=== PATIENT | female | born 1985 | race Caucasian/White ===

== ENCOUNTER → 2018-10-18 | Outpatient (CLI) | payer BC, OTHER ==
[~2018-10-18] MED LIST: PRILOSEC 20 MG20 MG PO
== END ==
LOC: ULTRA 09:21
DX: R10.10 Upper abdominal pain, unspecified (principal)

== ENCOUNTER → 2019-05-10 | Outpatient (CLI) | payer BC, OTHER | LOC: ULTRA 03:27 | DX: N63.21 Unspecified lump in the left breast, upper outer quadrant (principal); R92.2 Inconclusive mammogram ==

== ENCOUNTER → 2019-05-26 | Outpatient (CLI) | payer BC, OTHER ==
--- NOTE | 2019-05-27 16:11 | PATH ---
[facility] [address] [place] [address] PATHOLOGY RPT PROCEDURE Name: MARK ORDOÑEZ Room #: [facility] [id number] ������������������ Admission: 05/26/19 ������������������ Date of : 81 Discharge: Report #: [id number] Path Case #: [id number] [facility] Accession Number: [id number] . 01 Material submitted: . breast - LEFT BREAST 1200 2CMFN. Modifiers: left . 01 Clinical history: . Left breast mass. . 02 Diagnosis: Breast, 12:00, 2 cm from nipple, needle core biopsy: - Fibroadenoma with myxoid changes. - Negative for atypia or malignancy. 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 02 Comment: Dr. Milton Singh has seen area representative slides of this case (level 2 slides) and concurs with my diagnosis. 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 02 Electronically signed: . Debi Bustamante MD, Pathologist NPI- [id number] . 01 Gross description: . Received in formalin labeled "Mark Ordoñez, left breast 12:00, 2 cm from nipple" is a 3.5 x 2.2 x 0.3 cm aggregate of encinas-white to yellow-encinas lobulated soft tissue cores. The specimen is submitted entirely in cassettes A1-A3. The specimen is removed from the patient at 1030 and placed in formalin at unspecified time on May 26, 2019. The specimen is removed from formalin at 1850 on May 26, 2019. [place] [place] SY/SYC . 02 Pathologist provided ICD-10: D24.2 . 02 CPT . 008060 Specimen Comment: A courtesy copy of this report has been sent to Specimen Comment: [phone], . Specimen Comment: Report sent to / DR SERRANO Performed at: 01 [facility] [address], [place] [id number] MD Carlos Enrique Saunders MD Phone: [phone] [address] [address] PATHOLOGY RPT PROCEDURE Name: MARK ORDOÑEZ Room #: REG CLI [facility].#: [id number] ������������������ Admission: 05/26/19 ������������������ Date of : 81 Discharge: Report #: [id number] Path Case #: [id number] Performed at: [address], [place], [place] [id number] MD Debi Bustamante MD Phone: [phone]
== END | disposition home or self-care (01) ==
LOC: ULTRA 01:31
DX: D24.2 Benign neoplasm of left breast (principal); Z79.899 Other long term (current) drug therapy; Z98.890 Other specified postprocedural states